=== PATIENT | female | born 1960 | race Caucasian/White ===

== ENCOUNTER 2017-11-28 12:41 | Emergency (ER) | payer OTHER, MEDICAID ==
[~2017-11-28] VITALS: Ht 154.9 cm; Wt 44.0 kg
[2017-11-28 12:41] VITALS: BP_SYST 147
[~2017-11-28 12:41] MED LIST: DIPH25CA83; REM15; [UNRECOGNIZED DRUG - CODE]; [UNRECOGNIZED DRUG - CODE]
--- NOTE | 2017-11-28 12:46 | NUR ---
Patient triaged and placed in waiting room. VSS and patient appears in no acute distress at this time. Accompanied by SPOUSE, awaiting available bed, and MD notified of need for MSE.
--- NOTE | 2017-11-28 13:50 | NUR ---
BEING SEEN AND EVALUATED BY TIGHTENER POP
--- NOTE | 2017-11-28 13:55 | NUR ---
MSE completed by myself.
--- NOTE | 2017-11-28 14:00 | NUR ---
Pt presents to ER c/o pain to L knee radiating down to L ankle. Pt reports history of avascular necrosis on L knee and reprots experiencing a flare up. Pt reports pain level 10/10, no signs of acute distress, AOX4, NKDA.
[2017-11-28] MEDS ORDERED: MORPHINE SULFATE 10 MG/ML VIAL IM ONE (14:15)
[2017-11-28] MEDS ORDERED: DIPHENHYDRAMINE INJ 50 MG/ML VIAL IM ONE (14:15)
--- NOTE | 2017-11-28 15:30 | NUR ---
Johanny Lomeli [employer] SURVEYING TECHNICIAN at bedside updating pt and on diagnostic results.
--- NOTE | 2017-11-28 16:12 | NUR ---
Pt medicated for pain level 10/10 on L lower extremity. Pt tolerated well; will continue to monitor.
--- NOTE | 2017-11-28 16:45 | NUR ---
Patient given written and verbal discharge instructions and verbalizes understanding. ER MD discussed with patient the results and treatment provided. Patient in stable condition. ID arm band removed. Rx of Hydrocodone given. Patient educated on pain management and to follow up with PMD. Pain Scale 5/10. Opportunity for questions provided and answered.
[2017-11-28 16:50] VITALS: BP_SYST 141
== END 2017-11-28 16:45 | disposition home or self-care (01) ==
LOC: SED 12:41
DX: S90.121A Contusion of right lesser toe(s) without damage to nail, initial encounter (principal); G89.29 Other chronic pain; M25.562 Pain in left knee; I10 Essential (primary) hypertension; Z90.49 Acquired absence of other specified parts of digestive tract; Z90.89 Acquired absence of other organs; Z86.79 Personal history of other diseases of the circulatory system; X58.XXXA Exposure to other specified factors, initial encounter; Y93.39 Activity, other involving climbing, rappelling and jumping off; Y92.89 Other specified places as the place of occurrence of the external cause; Y99.8 Other external cause status
CPT/HCPCS: 96372; 99284; J1200; J2270